=== PATIENT | male | born 1995 | race Two or more races ===

== ENCOUNTER → 2024-06-28 | Emergency (ER) | payer OTHER ==
[~2024-06-28] VITALS: Ht 180.3 cm; Wt 113.4 kg
[~2024-06-28] MED LIST: GENTAMICIN SULFATE 0.15 MG/DR DROPS 5ML OP ONE; GENTAMICIN SULFATE 0.15 MG/DR DROPS 5ML OP STA
[2024-06-28 16:43] LABS: HEMATOCRIT 42.7 % (39.0-48.0); HEMOGLOBIN 14.1 g/dL (13-16.00); MEAN CELL VOLUME 82.9 fL (80.0-100.00); MEAN CORPUSCULAR HEMOGLOBIN 27.5 pg (27.00-32.0); MEAN CORPUSCULAR HGB CONC 33.1 g/dl (32.0-36.0); PLATELET COUNT 360 K/uL (150-450); RED BLOOD COUNT 5.15 M/uL (4.00-6.00); RED CELL DISTRIBUTION WIDTH 13.1 % (11.5-14.5)
== END | disposition home or self-care (01) ==
LOC: ER 13:55
DX: B34.9 Viral infection, unspecified (principal); B30.9 Viral conjunctivitis, unspecified; J03.90 Acute tonsillitis, unspecified; R53.81 Other malaise; Z20.822 Contact with and (suspected) exposure to COVID-19